=== PATIENT | female | born 2000 | race Caucasian/White ===

== ENCOUNTER 2019-03-15 23:03 | Emergency (ER) | payer BC ==
[2019-03-15 23:13] VITALS: BP 122/84; TEMP 98.2
[2019-03-15] MEDS ORDERED: IPRATROPIUM-ALBUTEROL 3 ML NEB INHALATION STA (23:14)
[2019-03-15 23:34] VITALS: PULSE 77
[2019-03-15 23:42] VITALS: RESP 22
--- NOTE | 2019-03-15 23:50 | ED ---
SOB HPI - General Chief Complaint: Shortness of Breath Stated Complaint: Asthma Time Seen by Provider: 03/15/19 23:12 Source: patient Mode of arrival: ambulatory Limitations: no limitations - History of Present Illness Initial Comments: Carmita is a 18-year-old female with a history of asthma for which she usually takes daily medications has a rescue inhaler as well as rescue nebulizer. Patient is out of her daily medications and reports she's been using her rescue inhaler and nebulizer more frequently. She reports that this evening she is driving back to her home when she felt that her asthma was worsening, she felt very short of breath and was wheezing. She had artery used her nebulizer so decided to come the ER for evaluation. She has been hospitalized for asthma as a child but not in the past few years. She's never been in ICU and has never required intubation. - Related Data Home Medications Medication Instructions Recorded Confirmed Albuterol Sulfate [Proair Hfa] 1 - 2 puff INHALATION RT-QID PRN 10/06/14 03/15/19 Fluticasone/Salmeterol [Advair 1 puff INHALATION RT-BID 10/06/14 03/15/19 250-50 Diskus] Albuterol Nebulized [Ventolin 2.5 mg INHALATION RT-QID PRN 03/15/19 03/15/19 Nebulized] Previous Rx's Medication Instructions Recorded Fluticasone/Salmeterol [Advair 1 each IH BID #1 blst.w.dev 03/16/19 250-50 Diskus] predniSONE 40 mg PO DAILY #10 tab 03/16/19 Allergies Allergy/AdvReac Type Severity Reaction Status Date / Time banana Allergy Dyspnea Verified 03/15/19 23:15 kiwi Allergy Dyspnea Verified 03/15/19 23:15 Review of Systems ROS Statement: Those systems with pertinent positive or pertinent negative responses have been documented in the HPI. ROS Other: All systems not noted in ROS Statement are negative. Past Medical History Past Medical History: Asthma History of Any Multi-Drug Resistant Organisms: None Reported Past Surgical History: Adenoidectomy, Tonsillectomy Past Psychological History: No Psychological Hx Reported Smoking Status: Never smoker Past Alcohol Use History: Occasional Past Drug Use History: None Reported General Exam - General Exam Comments Initial Comments: Physical Exam GENERAL: Patient is well-developed and well-nourished. Patient is nontoxic and well-hydrated and is in no distress. HENT: Normocephalic, Atraumatic. EYES: PERRL, EOMI PULMONARY: Wheezing in all lung boyle Tachypnea CARDIOVASCULAR: There is a regular rate and rhythm without any murmurs gallops or rubs. ABDOMEN: Soft and nontender with normal bowel sounds. SKIN: Skin is clear with no lesions or rashes and otherwise unremarkable. : Deferred NEUROLOGIC: Patient is alert and oriented x3. Moving all extremities spontaneously MUSCULOSKELETAL: Normal extremities with adequate strength and full range of motion. No lower extremity swelling or edema. No calf tenderness. PSYCHIATRIC: Normal psychiatric evaluation. Limitations: no limitations Course Vital Signs 03/15/19 03/15/19 03/15/19 23:10 23:23 23:30 Temperature 98.2 F Pulse Rate 74 87 77 Respiratory 20 18 18 Rate Blood Pressure 122/84 O2 Sat by Pulse 94 L Oximetry Medical Decision Making - Medical Decision Making Patient was seen and evaluated, history is obtained from the patient and mom. This 18-year-old female with mild to moderate severity of asthma. Patient's currently out of her daily medications and rinsing an asthma attack. Patient reports her cough is only been minimally productive. Treatment and chest x-ray were ordered. Chest x-ray with no signs of pneumonia. Patient was reevaluated after breathing treatment and had complete resolution of wheezing and is feeling much better. At this time patient stable for discharge home. She will be pre scribed Advair and prednisone. His pertaining to care were answered return parameters were discussed patient was discharged home in stable condition. Disposition Clinical Impression: Asthma with acute exacerbation Disposition: HOME SELF-CARE Condition: Stable Instructions (If sedation given, give patient instructions): Asthma (ED) Prescriptions: Fluticasone/Salmeterol [Advair 250-50 Diskus] 1 each IH BID #1 blst.w.dev predniSONE 40 mg PO DAILY #10 tab Is patient prescribed a controlled substance at d/c from ED?: No Referrals: Alvaro Lagunas III, MD [Primary Care Provider] - 1-2 days
[2019-03-15] MEDS ORDERED: predniSONE 20 MG TAB PO STA (23:53)
--- NOTE | 2019-03-15 23:53 | XR ---
EXAMINATION TYPE: XR chest 2V DATE OF EXAM: 03/15/2019 COMPARISON: 04/05/2017 HISTORY: Cough TECHNIQUE: Frontal and lateral views of the chest are obtained. FINDINGS: Heart and mediastinum are normal. Lungs are clear. Diaphragm is normal. Bony thorax appear s normal. IMPRESSION: Normal chest. No change.
== END 2019-03-16 00:55 | disposition home or self-care (01) ==
LOC: EC 23:03
DX: J45.901 Unspecified asthma with (acute) exacerbation (principal); Z79.51 Long term (current) use of inhaled steroids; Z91.018 Allergy to other foods; Z90.89 Acquired absence of other organs
CPT/HCPCS: 94640; 71046; 99285; J7512

== ENCOUNTER → 2019-04-02 | Outpatient (CLI) | payer BC ==
--- NOTE | 2019-04-02 08:16 | USB ---
Reason for exam: clinical finding. History: Taking hormonal contraceptives beginning at age 14. Indicated problem(s): pain in the right breast. Physical Findings: Nurse did not find any significant physical abnormalities on exam. US Breast RT Right complete breast ultrasound includes all four quadrants, the retroareolar region and axilla. Finding demonstrates no cystic or solid lesion seen. These results were verbally communicated with the patient and result sheet given to the patient on 04/02/19. ASSESSMENT: Negative, BI-RAD 1 RECOMMENDATION: Clinical management of the right breast. Manage patient on a clinical basis.
== END ==
LOC: RADUSWWP 07:08
PROVIDERS: ATTEND Family Medicine
DX: N64.4 Mastodynia (principal)

== ENCOUNTER 2019-09-22 16:44 | Emergency (ER) | payer BC ==
[2019-09-22 16:52] VITALS: RESP 18; TEMP 97.7
[2019-09-22] MEDS ORDERED: SODIUM CHLORIDE 0.9% 500 ML 500 ML IV STA (17:30)
[2019-09-22 17:51] LABS: Basophils % (A) 0 %; Eosinophils # (A) 0.4 k/uL (0-0.7); Eosinophils % (A) 4 %; HGB 14.2 gm/dL (11.4-16.0); Lymphocytes # (A) 1.6 k/uL (1.0-4.8); Lymphocytes % (A) 14 %; MCH 28.6 pg (25.0-35.0); MCV 86.8 fL (80.0-100.0); Mean Platelet Volume 7.1; Monocytes # (A) 0.3 k/uL (0-1.0); Monocytes % (A) 2 %; Neutrophils # (A) 8.8 k/uL (1.3-7.7); Neutrophils % (A) 79 %; Platelet Count 350 k/uL (150-450); RBC 4.95 m/uL (3.80-5.40); RDW 13.5 % (11.5-15.5); WBC 11.2 k/uL (4.0-11.0)
[2019-09-22 18:01] LABS: ALT 17 U/L (4-34); AST 25 U/L (14-36); African American GFR (CKD) >90 (>60 ml/min/1.73 sqM); Albumin 4.7 g/dL (3.5-5.0); Alkaline Phosphatase 77 U/L (38-126); Anion Gap 10 mmol/L; Blood Urea Nitrogen 15 mg/dL (7-17); Calcium 9.8 mg/dL (8.4-10.2); Carbon Dioxide 25 mmol/L (22-30); Chloride 105 mmol/L (98-107); Glucose 104 mg/dL (74-99); Non-African American GFR(CKD) >90 (>60 ml/min/1.73 sqM); Potassium 4.4 mmol/L (3.5-5.1); Sodium 140 mmol/L (137-145); Total Bilirubin 0.4 mg/dL (0.2-1.3); Total Protein 7.5 g/dL (6.3-8.2)
[2019-09-22 18:27] LABS: Appearance,Urine Clear (Clear); Bacteria,Urine Rare /hpf; Bilirubin,Urine Negative (Negative); Blood,Urine Moderate (Negative); Color,Urine Yellow; Glucose,Urine (UA) Negative (Negative); Ketones,Urine 1+ (Negative); Leukocyte Esterase,Urine Negative (Negative); Mucus,Urine Moderate /hpf; Nitrite,Urine Negative (Negative); Protein,Urine Trace (Negative); RBC,Urine 46 /hpf (0-5); Specific Gravity,Urine 1.022 (1.001-1.035); Squamous Epithelial Cell,Urine <1 /hpf (0-4); WBC,Urine 3 /hpf (0-5)
--- NOTE | 2019-09-22 18:39 | ED ---
General Adult HPI - General Chief complaint: Abdominal Pain Stated complaint: Abd pain Time Seen by Provider: 09/22/19 16:57 Source: patient, RN notes reviewed, old records reviewed Mode of arrival: ambulatory Limitations: no limitations - History of Present Illness Initial comments: 18 year old female patient presents to ED if she complaint of right upper quadrant pain. Patient reports that approximately 2 hours prior to presentation patient was having right upper quadrant pain. Patient reports she will nauseous at one episode of nausea and vomiting. Patient reports that this pain has since resolved. At time of evaluation patient is denying any pain. Patient does report that she is currently being treated for urinary tract infection. Systemic: Pt denies fatigue, fever/chills, rash. Pt denies weakness, night sweats, weight loss. Neuro: Pt denies headache, visual disturbances, syncope or pre-syncope. HEENT: Pt denies ocular discharge or irritation, otalgia, rhinorrhea, pharyngitis or notable lymphadenopathy. Cardiopulmonary: Pt denies chest pain, SOB, heart palpitations, dyspnea on exertion. Abdominal/GI: Pt denies abdominal pain, n/v/d. : Pt denies dysuria, burning w/ urination, frequency/urgency. Denies new onset urinary or bowel incontinence. MSK: Pt denies myalgia, loss of strength or function in extremities. Neuro: Pt denies new onset weakness, paresthesias. - Related Data Home Medications Medication Instructions Recorded Confirmed Albuterol Sulfate [Proair Hfa] 1 - 2 puff INHALATION RT-QID PRN 10/06/14 03/15/19 Fluticasone/Salmeterol [Advair 1 puff INHALATION RT-BID 10/06/14 03/15/19 250-50 Diskus] Albuterol Nebulized [Ventolin 2.5 mg INHALATION RT-QID PRN 03/15/19 03/15/19 Nebulized] Previous Rx's Medication Instructions Recorded Fluticasone/Salmeterol [Advair 1 each IH BID #1 blst.w.dev 03/16/19 250-50 Diskus] predniSONE [Deltasone] 40 mg PO DAILY #10 tab 03/16/19 Allergies Allergy/AdvReac Type Severity Reaction Status Date / Time banana Allergy Dyspnea Verified 09/22/19 16:50 kiwi Allergy Dyspnea Verified 09/22/19 16:50 Review of Systems ROS Statement: Those systems with pertinent positive or pertinent negative responses have been documented in the HPI. ROS Other: All systems not noted in ROS Statement are negative. Past Medical History Past Medical History: Asthma History of Any Multi-Drug Resistant Organisms: None Reported Past Surgical History: Adenoidectomy, Tonsillectomy Past Psychological History: No Psychological Hx Reported Smoking Status: Never smoker Past Alcohol Use History: Occasional Past Drug Use History: None Reported General Exam - General Exam Comments Initial Comments: Constitutional: NAD, AOX3, Pt has pleasant affect. HEENT: NC/AT, trachea midline, neck supple, no lymphadenopathy. Posterior pharyn x non erythematous, without exudates. External ears appear normal, without discharge. Mucous membranes moist. Eyes PERRLA, EOM intact. There is no scleral icterus. No pallor noted. Cardiopulmonary: RRR, no murmurs, rubs or gallops, no JVD noted. Lungs CTAB in anterior and posterior boyle. No peripheral edema. Abdominal exam: Abdomen soft and non-distended. Abdomen nontender to palpation and right upper quadrant region. Feliciano sign negative. Bowel sounds active in LLQ. No hepatosplenomegaly. No ecchymosis. Repeat abdominal exam displayed nontender abdomen. No CVA tenderness. Neuro: CN II-XII grossly intact. No nuchal rigidity. No raccon eyes, no hernandez sign, no hemotympanum. No cervical spinal tenderness. MSK: No posterior calf tenderness bilaterally, homans sign negative bilaterally. Posterior tibialis and radial pulse +2 bilaterally. Sensation intact in upper and lower extremities. Full active ROM in upper and lower extremities, 5/5 stregnth. Limitations: no limitations Course Vital Signs 09/22/19 09/22/19 16:50 19:36 Temperature 97.7 F Pulse Rate 68 63 Respiratory 18 18 Rate Blood Pressure 133/83 121/93 O2 Sat by Pulse 100 100 Oximetry Medical Decision Making - Medical Decision Making 18 year old female patient presents to ED if she complaint of right upper quadrant pain. Patient reports that approximately 2 hours prior to presentation patient was having right upper quadrant pain. Patient reports she will nauseous at one episode of nausea and vomiting. Patient reports that this pain has since resolved. At time of evaluation patient is denying any pain. Patient does report that she is currently being treated for urinary tract infection. She felt rather stable, afebrile. Physical exam displayed mild right upper quadrant tenderness, Feliciano sign negative, no other areas of abdominal tenderness. Laboratory investigations were obtained, mild leukocytosis of 11.2. UA did display 46 red blood cells patient is on her menses. HCG is negative. Gallbladder ultrasound displayed a probable 0.4 cm gallbladder polyp. Patient continues to be symptom free, repeat abdominal exam revealed nontender abdomen. Patient discharged with outpatient primary care and surgical follow-up and will return to ER if condition worsens. Case discussed with Dr. Jimenez. - Lab Data Result diagrams: 09/22/19 17:34 09/22/19 17:34 Lab Results 09/22/19 09/22/19 09/22/19 Range/Units 17:34 17:34 17:34 WBC 11.2 H (4.0-11.0) k/uL RBC 4.95 (3.80-5.40) m/uL Hgb 14.2 (11.4-16.0) gm/dL Hct 43.0 (34.0-46.0) % MCV 86.8 (80.0-100.0) fL MCH 28.6 (25.0-35.0) pg MCHC 33.0 (31.0-37.0) g/dL RDW 13.5 (11.5-15.5) % Plt Count 350 (150-450) k/uL Neutrophils % 79 % Lymphocytes % 14 % Monocytes % 2 % Eosinophils % 4 % Basophils % 0 % Neutrophils # 8.8 H (1.3-7.7) k/uL Lymphocytes # 1.6 (1.0-4.8) k/uL Monocytes # 0.3 (0-1.0) k/uL Eosinophils # 0.4 (0-0.7) k/uL Basophils # 0.0 (0-0.2) k/uL Sodium 140 (137-145) mmol/L Potassium 4.4 (3.5-5.1) mmol/L Chloride 105 (98-107) mmol/L Carbon Dioxide 25 (22-30) mmol/L Anion Gap 10 mmol/L BUN 15 (7-17) mg/dL Creatinine 0.88 (0.52-1.04) mg/dL Est GFR (CKD-EPI)AfAm >90 (>60 ml/min/1.73 sqM) Est GFR (CKD-EPI)NonAf >90 (>60 ml/min/1.73 sqM) Glucose 104 H (74-99) mg/dL Plasma Lactic Acid Ari 0.8 (0.7-2.0) mmol/L Calcium 9.8 (8.4-10.2) mg/dL Total Bilirubin 0.4 (0.2-1.3) mg/dL AST 25 (14-36) U/L ALT 17 (4-34) U/L Alkaline Phosphatase 77 (38-126) U/L Total Protein 7.5 (6.3-8.2) g/dL Albumin 4.7 (3.5-5.0) g/dL Lipase 56 (23-300) U/L Urine Color Urine Appearance (Clear) Urine pH (5.0-8.0) Ur Specific [place] (1.001-1.035) Urine Protein (Negative) Urine Glucose (UA) (Negative) Urine Ketones (Negative) Urine Blood (Negative) Urine Nitrite (Negative) Urine Bilirubin (Negative) Urine Urobilinogen (<2.0) mg/dL Ur Leukocyte Esterase (Negative) Urine RBC (0-5) /hpf Urine WBC (0-5) /hpf Ur Squamous Epith Cells (0-4) /hpf Urine Bacteria (None) /hpf Urine Mucus (None) /hpf Urine HCG, Qual (Not Detectd) 09/22/19 09/22/19 Range/Units 17:34 18:11 WBC (4.0-11.0) k/uL RBC (3.80-5.40) m/uL Hgb (11.4-16.0) gm/dL Hct (34.0-46.0) % MCV (80.0-100.0) fL MCH (25.0-35.0) pg MCHC (31.0-37.0) g/dL RDW (11.5-15.5) % Plt Count (150-450) k/uL Neutrophils % % Lymphocytes % % Monocytes % % Eosinophils % % Basophils % % Neutrophils # (1.3-7.7) k/uL Lymphocytes # (1.0-4.8) k/uL Monocytes # (0-1.0) k/uL Eosinophils # (0-0.7) k/uL Basophils # (0-0.2) k/uL Sodium (137-145) mmol/L Potassium (3.5-5.1) mmol/L Chloride (98-107) mmol/L Carbon Dioxide (22-30) mmol/L Anion Gap mmol/L BUN (7-17) mg/dL Creatinine (0.52-1.04) mg/dL Est GFR (CKD-EPI)AfAm (>60 ml/min/1.73 sqM) Est GFR (CKD-EPI)NonAf (>60 ml/min/1.73 sqM) Glucose (74-99) mg/dL Plasma Lactic Acid Ari (0.7-2.0) mmol/L Calcium (8.4-10.2) mg/dL Total Bilirubin (0.2-1.3) mg/dL AST (14-36) U/L ALT (4-34) U/L Alkaline Phosphatase (38-126) U/L Total Protein (6.3-8.2) g/dL Albumin (3.5-5.0) g/dL Lipase (23-300) U/L Urine Color Yellow Urine Appearance Clear (Clear) Urine pH 7.0 (5.0-8.0) Ur Specific [place] 1.022 (1.001-1.035) Urine Protein Trace H (Negative) Urine Glucose (UA) Negative (Negative) Urine Ketones 1+ H (Negative) Urine Blood Moderate H (Negative) Urine Nitrite Negative (Negative) Urine Bilirubin Negative (Negative) Urine Urobilinogen 2.0 (<2.0) mg/dL Ur Leukocyte Esterase Negative (Negative) Urine RBC 46 H (0-5) /hpf Urine WBC 3 (0-5) /hpf Ur Squamous Epith Cells <1 (0-4) /hpf Urine Bacteria Rare H (None) /hpf Urine Mucus Moderate H (None) /hpf Urine HCG, Qual Not Detected (Not Detectd) Disposition Clinical Impression: Gallbladder polyp, Abdominal pain Disposition: HOME SELF-CARE Condition: Stable Instructions (If sedation given, give patient instructions): Abdominal Pain (ED) Additional Instructions: Follow-up with primary care provider and general surgeon. Recommend outpatient repeat ultrasound for surveillance. Return to ER if condition worsens. Is patient prescribed a controlled substance at d/c from ED?: No Referrals: Alvaro Lagunas III, MD [Primary Care Provider] - 1-2 days Highfill,Edvin J, DO [Doctor of Osteopathic Medicine] - 1-2 days
--- NOTE | 2019-09-22 19:01 | US ---
EXAMINATION TYPE: US gallbladder DATE OF EXAM: 09/22/2019 COMPARISON: NONE CLINICAL HISTORY: RUQ pain. Right flank pain x 1 hour, N/V, patient not NPO EXAM MEASUREMENTS: Liver Length: 13.3 cm Gallbladder Wall: 0.2 cm CBD: 0.5 cm Right Kidney: 10.1 x 4.0 x 4.5 cm Pancreas: limited by overlying midline bowel gas Liver: wnl Gallbladder: 0.4cm non mobile non shadowing hyperechoic focus anterior wall, possible polyp Evidence for sonographic Feliciano's sign: no CBD: visualized portions wnl, limited by overlying bowel gas Right Kidney: wnl IMPRESSION: 1. No sonographic evidence of cholelithiasis or acute cholecystitis. 2. Probable 0.4 cm gallbladder polyp. Annual surveillance is recommended for polyps of this size.
[2019-09-22 19:37] VITALS: BP 121/93; PULSE 63
== END 2019-09-22 19:38 | disposition home or self-care (01) ==
LOC: EC 16:44
DX: K82.4 Cholesterolosis of gallbladder (principal); D72.829 Elevated white blood cell count, unspecified; J45.909 Unspecified asthma, uncomplicated; Z79.51 Long term (current) use of inhaled steroids; Z79.899 Other long term (current) drug therapy; Z91.018 Allergy to other foods
CPT/HCPCS: 36415; 76705; 80053; 81001; 81025; 83605; 83690; 85025; 96360; 99284

== ENCOUNTER → 2021-05-26 | Outpatient (CLI) | payer BC | END | disposition home or self-care (01) | LOC: LABWHC1 08:03 | PROVIDERS: ATTEND Nurse Practitioner Family | DX: N91.1 Secondary amenorrhea (principal) | CPT/HCPCS: 36415; 84702 ==

== ENCOUNTER 2022-01-12 15:30 | Emergency (ER) | payer BC ==
[2022-01-12 15:47] VITALS: TEMP 98
[2022-01-12] MEDS ORDERED: OXYMETAZOLINE 0.05% NASL SPRAY 1 SPRAY BOTTLE NASAL STA (16:12)
--- NOTE | 2022-01-12 16:46 | ED ---
ENT HPI - General Chief complaint: ENT Stated complaint: Nose bleed-37 weeks preg Time Seen by Provider: 01/12/22 16:03 Source: patient Mode of arrival: ambulatory Limitations: no limitations - History of Present Illness Initial comments: Patient is a 21-year-old female currently 37 weeks presenting with chief complaint of epistaxis. Patient states nosebleed started approximately an hour and a half prior to arrival. Patient was applying pressure at home which did not stop the nosebleed. She did remove one large clot from the nose. Patient states that she thought she saw what appeared to be a polyp when looking up the nose. Patient has had 2 other nosebleeds throughout this . Patient is otherwise asymptomatic, no chest pain, shortness of breath, fever, chills, nausea, vomiting, abdominal or pelvic pain, vaginal bleeding or discharge, diarrhea, hematochezia, melena, dysuria, hematuria, urgency, frequency. - Related Data Home Medications Medication Instructions Recorded Confirmed Albuterol Sulfate [Proair Hfa] 1 - 2 puff INHALATION RT-QID PRN 10/06/14 03/15/19 Fluticasone Propion/Salmeterol 1 puff INHALATION RT-BID 10/06/14 03/15/19 [Advair 250-50 Diskus] Albuterol Nebulized [Ventolin 2.5 mg INHALATION RT-QID PRN 03/15/19 03/15/19 Nebulized] Previous Rx's Medication Instructions Recorded Fluticasone Propion/Salmeterol 1 each IH BID #1 blst.w.dev 03/16/19 [Advair 250-50 Diskus] predniSONE [Deltasone] 40 mg PO DAILY #10 tab 03/16/19 Allergies Allergy/AdvReac Type Severity Reaction Status Date / Time banana Allergy Dyspnea Verified 01/12/22 15:47 kiwi Allergy Dyspnea Verified 01/12/22 15:47 Review of Systems ROS Statement: Those systems with pertinent positive or pertinent negative responses have been documented in the HPI. ROS Other: All systems not noted in ROS Statement are negative. Past Medical History Past Medical History: Asthma History of Any Multi-Drug Resistant Organisms: None Reported Past Surgical History: Adenoidectomy, Tonsillectomy Past Psychological History: No Psychological Hx Reported Smoking Status: Former smoker Past Alcohol Use History: Occasional Past Drug Use History: None Reported General Exam Limitations: no limitations General appearance: alert, in no apparent distress Head exam: Present: atraumatic, normocephalic, normal inspection Eye exam: Present: normal appearance, EOMI. Absent: scleral icterus, periorbital swelling ENT exam: Present: other (Epistaxis from right nostril) Neck exam: Present: normal inspection Neurological exam: Present: alert, oriented X3, CN II-XII intact Psychiatric exam: Present: normal affect, normal mood Skin exam: Present: warm, dry, intact, normal color. Absent: rash Course Vital Signs 01/12/22 01/12/22 15:45 17:41 Temperature 98 F Pulse Rate 91 77 Respiratory 20 18 Rate Blood Pressure 115/76 115/78 O2 Sat by Pulse 99 97 Oximetry Medical Decision Making - Medical Decision Making She is a 21-year-old female currently 37 weeks presenting with chief complaint of epistaxis. Bleeding is coming from the right nostril. On examination patient removed a large clot from the nostril when removing the tissue near her nose. Polyp is seen on examination. Patient is given Afrin and nasal clamp was applied. After an observation period bleeding stopped and was well-controlled. Follow-up with PCP and OBGYN. Report back to ER with any new or worsening symptoms. Discussed return parameters and answered all questions. Patient conveyed verbal understanding and agreed to the plan. I discussed this case in detail with my attending Dr. Cornell Disposition Clinical Impression: Epistaxis Disposition: HOME SELF-CARE Condition: Good Instructions (If sedation given, give patient instructions): Nosebleed (ED) Additional Instructions: Follow-up with PCP and [facility]. Report back to ER with any new or worsening symptoms. Utilize nose clamp and Afrin at home if needed for other nosebleeds, report back to ER if unable to stop the nosebleed at home. Is patient prescribed a controlled substance at d/c from ED?: No Referrals: Alvaro Lagunas III, MD [Primary Care Provider] - 1-2 days Time of Disposition: 17:20
[2022-01-12 17:42] VITALS: BP 115/78; PULSE 77; RESP 18
== END 2022-01-12 17:42 | disposition home or self-care (01) ==
LOC: EC 15:30
DX: O26.893 Other specified pregnancy related conditions, third trimester (principal); R04.0 Epistaxis; J45.909 Unspecified asthma, uncomplicated; Z87.891 Personal history of nicotine dependence; Z91.018 Allergy to other foods; Z79.51 Long term (current) use of inhaled steroids; Z3A.37 37 weeks gestation of pregnancy
CPT/HCPCS: 30901; 99283

== ENCOUNTER 2022-01-27 05:53 | Inpatient (IN) | payer BC ==
--- NOTE | 2022-01-26 11:13 | P.HPOB ---
History of Present Illness H&P Date: 01/26/22 Chief Complaint: Requested induction of labor. This patient is a pleasant 21 yr EDC 01/30/[birth year]22 estimated gestational age 39 4/7 weeks who presents to L&D for requested induction of labor. for the most part has been uncomplicated, however most recently she had a significant nose bleed and was found to have a large nasal polyp that Dr. Lagunas cauterized and has referred to ENT for future removal. Review of Systems Ears, nose, mouth and throat: Reports as per HPI Genitourinary: Reports Menstruation: Reports amenorrhea Past Medical History Past Medical History: Asthma Additional Past Medical History / Comment(s): Large nasal polyp History of Any Multi-Drug Resistant Organisms: None Reported Past Surgical History: Adenoidectomy, Tonsillectomy Past Anesthesia/Blood Transfusion Reactions: No Reported Reaction Past Psychological History: No Psychological Hx Reported Smoking Status: Former smoker Past Alcohol Use History: None Reported Past Drug Use History: None Reported Medications and Allergies Home Medications Medication Instructions Recorded Confirmed Type Albuterol Sulfate [Proair Hfa] 1 - 2 puff INHALATION RT-QID PRN 10/06/14 03/15/19 History Fluticasone Propion/Salmeterol 1 puff INHALATION RT-BID 10/06/14 03/15/19 History [Advair 250-50 Diskus] Albuterol Nebulized [Ventolin 2.5 mg INHALATION RT-QID PRN 03/15/19 03/15/19 History Nebulized] Fluticasone Propion/Salmeterol 1 each IH BID #1 blst.w.dev 03/16/19 Rx [Advair 250-50 Diskus] predniSONE [Deltasone] 40 mg PO DAILY #10 tab 03/16/19 Rx Allergies Allergy/AdvReac Type Severity Reaction Status Date / Time banana Allergy Dyspnea Verified 01/12/22 15:47 kiwi Allergy Dyspnea Verified 01/12/22 15:47 Exam - OBG Physical Exam Abdomen: bowel sounds normal, no diffuse tenderness, no bruit present, no guarding noted, no hepatomegaly, no splenomegaly, no mass Vulva: both: normal Vagina: normal moisture, no discharge Cervix: Cx 2-3 cm/soft Uterus: enlarged (Fundal height is 39 cm) Results labs: O positive, Rubella Immune, [id number] neg, Glucola 92, GBS negative. Ultrasound 12/30 Vtx 5#11oz (25-50%) Normal Assessment and Plan Assessment: This is a pleasant 21 yr female 39 4/7 weeks gestation requesting induction of labor. Plan is induction of labor and anticipate vaginal delivery. (1) 39 weeks gestation of Status: Acute Code(s): Z3A.39 - 39 WEEKS GESTATION OF SNOMED Code(s): 39161389 (2) Elective induction of labor planned Status: Acute Code(s): VQN6018 - SNOMED Code(s): 213205284
[2022-01-27] MEDS ORDERED: CARBOPROST TROMETHAMINE 250 MCG/ML 1 ML AMP IM PRN (06:03)
[2022-01-27] MEDS ORDERED: TERBUTALINE 1 MG/ML VIAL SQ PRN (06:03)
[2022-01-27] MEDS ORDERED: OXYTOCIN 10 UNIT/ML 1 ML VIAL IM PRN (06:03)
[2022-01-27] MEDS ORDERED: LIDOCAINE 0.5% (PF) 5 MG/ML (50 ML SDV) SQ PRN (06:03)
[2022-01-27] MEDS ORDERED: METHYLERGONOVINE 0.2 MG/ML 1 ML AMP IM PRN (06:03)
[2022-01-27] MEDS ORDERED: OXYTOCIN 30 UNITS/500 ML NS 30 UNIT in SALINE 1 500ML.BAG IV SCH ×2 (06:03→18:39)
[2022-01-27] MEDS: LACTATED RINGERS 1,000 ML IV SCH ×3 (06:13→16:43)
[2022-01-27 06:38] LABS: Basophils % (A) 0 %; Eosinophils # (A) 0.3 k/uL (0-0.7); Eosinophils % (A) 3 %; HCT 32.8 % (34.0-46.0); HGB 11.1 gm/dL (11.4-16.0); Lymphocytes # (A) 2.7 k/uL (1.0-4.8); Lymphocytes % (A) 25 %; MCHC 33.7 g/dL (31.0-37.0); Monocytes # (A) 0.4 k/uL (0-1.0); Monocytes % (A) 3 %; Neutrophils # (A) 7.2 k/uL (1.3-7.7); Neutrophils % (A) 67 %; Platelet Count 425 k/uL (150-450); RBC 3.82 m/uL (3.80-5.40); RDW 13.9 % (11.5-15.5); WBC 10.8 k/uL (3.8-10.6)
[2022-01-27] MEDS ORDERED: ROPIVACAINE 5 MG/ML 20 ML AMPULE ONE (11:43)
[2022-01-27] MEDS ORDERED: fentaNYL (PF) 50 MCG/ML 5 ML AMP ONE (11:43)
[2022-01-27] MEDS ORDERED: SODIUM CHLORIDE 0.9% 100 ML BAG ONE (11:43)
--- NOTE | 2022-01-27 18:28 | P.PROBDLV ---
Vaginal Delivery Note - . Vaginal Delivery Note: Normal vaginal delivery viable female Apgars 9 and 9 delivery time is 1810 hrs. Please see dictated H&P for intimate details of this patient's admission. In brief summary this is a pleasant 21-year-old 1 para 0 female estimated gestational age 39-4/7 weeks who presents to labor and delivery for requested induction of labor. On admission patient is 3 cm dilated has artificial rupture membranes for clear fluid. Labor is induced with Pitocin per protocol. Patient's labor progresses and she does get an epidural for pain control. Patient gets to complete and at this time its felt that her epidural is very dense therefore showed off and approximately 40 minutes later she does have the urge to push. Patient pushes the head to the perineum. Posterior perineum is supported we have controlled delivery of 's head over the intact perineum. Mouth and nares are bulb suctioned. is straight occiput anterior presentation. The anterior shoulder then spontaneously delivers followed by the posterior shoulder and rest this 's body. This is a vigorous viable female Apgars 9 and 9 delivery time is 1810 hrs. After delivery of the the is laid on the mother's abdomen. After the umbilical cord is then pulsating is doubly clamped and cut appears to be trivascular. The placenta is then spontaneously delivered intact. Inspection of the perineum shows first-degree laceration that superficial but repaired with 3-0 Vicryl usual fashion. There is also a right labial laceration does not require repair. All counts are correct 3. No complications. Infant and mother are stable delivery room.
[2022-01-27] MEDS ORDERED: SIMETHICONE 80 MG CHEWABLE PO PRN (18:39)
[2022-01-27] MEDS ORDERED: ACETAMINOPHEN TAB 325 MG TAB PO PRN (18:39)
[2022-01-27] MEDS ORDERED: BENZOCAINE/MENTHOL SPRAY 1 GM/SPRAY AEROSOL TOPICAL PRN (18:39)
[2022-01-27] MEDS ORDERED: diphenhydrAMINE 25 MG CAP PO PRN (18:39)
[2022-01-27] MEDS ORDERED: bisacodyL 10 MG SUPP RECTAL PRN (18:39)
[2022-01-27] MEDS ORDERED: LANOLIN CREAM 5 GM TUBE TOPICAL PRN (18:39)
[2022-01-27] MEDS ORDERED: HYDROCORTISONE 2.5% RECTAL CREAM 30 GM TUBE RECTAL PRN (18:39)
[2022-01-27] MEDS ORDERED: ZOLPIDEM 5 MG TAB PO PRN (18:39)
[2022-01-27] MEDS ORDERED: diphenhydrAMINE 50 MG/ML 1 ML VIAL IVP PRN (18:39)
[2022-01-27] MEDS: IBUPROFEN 600 MG TAB PO PRN (19:05)
[2022-01-27 19:31] VITALS: RESP 16
[2022-01-28] MEDS: SENNOSIDES-DOCUSATE SODIUM 1 EACH TAB PO SCH ×3 (00:29→08:35)
[2022-01-28] MEDS: IBUPROFEN 600 MG TAB PO PRN ×2 (05:46→12:15)
[2022-01-28 05:53] LABS: Basophils % (A) 0 %; Eosinophils # (A) 0.2 k/uL (0-0.7); Eosinophils % (A) 1 %; HCT 29.3 % (34.0-46.0); Lymphocytes # (A) 2.2 k/uL (1.0-4.8); Lymphocytes % (A) 18 %; MCH 29.4 pg (25.0-35.0); MCV 86.5 fL (80.0-100.0); Mean Platelet Volume 8.4; Monocytes # (A) 0.5 k/uL (0-1.0); Monocytes % (A) 4 %; Neutrophils # (A) 8.9 k/uL (1.3-7.7); Neutrophils % (A) 74 %; Platelet Count 337 k/uL (150-450); RBC 3.39 m/uL (3.80-5.40)
--- NOTE | 2022-01-28 06:36 | P.PNOBGVD ---
Subjective - Subjective Patient reports: Reports appetite normal, Reports voiding normally, Reports pain well controlled, Reports ambulating normally : doing well Objective - Latest Vital Signs Latest vital signs: Vital Signs Temp Pulse Resp BP Pulse Ox 01/28/22 04:00 97.7 F 83 16 98/62 97 01/28/22 00:00 97.6 F 80 16 100/61 97 01/27/22 20:42 98.2 F 74 16 116/69 01/27/22 20:12 78 16 107/70 01/27/22 19:42 73 16 114/75 01/27/22 19:27 74 16 116/69 01/27/22 19:12 98 18 118/72 98 01/27/22 18:57 75 16 122/70 01/27/22 18:42 72 16 118/66 Intake and Output 01/27/22 01/27/22 01/28/22 14:59 22:59 06:59 Output Total 714 400 Balance -714 -400 Output: Urine 600 400 Output, Quantitative 114 Blood Loss Other: # Voids 1 - Exam Lungs: bilateral: normal Chest: Normal S1, Normal S2 Extremities: Present: normal Abdomen: Present: normal appearance, soft Uterus: Present: normal, firm - Labs Labs: Abnormal Lab Results - Last 24 Hours (Table) 01/27/22 01/28/22 Range/Units 06:00 05:39 WBC 10.8 H 12.0 H (3.8-10.6) k/uL RBC 3.39 L (3.80-5.40) m/uL Hgb 11.1 L 10.0 L (11.4-16.0) gm/dL Hct 32.8 L 29.3 L (34.0-46.0) % Neutrophils # 8.9 H (1.3-7.7) k/uL Assessment and Plan Assessment: day #1. Patient is resting without complaints and wishes to go. Vital signs are stable she's afebrile. Uterus is firm nontender and she is having normal lochia. Impression this is a normal course. Plan is to continue routine care discharge home later today. (1) 39 weeks gestation of Current Visit: No Status: Acute Code(s): Z3A.39 - 39 WEEKS GESTATION OF SNOMED Code(s): 82220034 (2) Elective induction of labor planned Current Visit: No Status: Acute Code(s): [id number] - SNOMED Code(s): 752564408
--- NOTE | 2022-01-28 06:39 | P.DS ---
Providers Date of admission: 01/27/22 05:53 Expected date of discharge: 01/28/22 Attending physician: Cedric Cruz Primary care physician: Alvaro Lagunas - Discharge Diagnosis(es) (1) 39 weeks gestation of Current Visit: No Status: Acute (2) Elective induction of labor planned Current Visit: No Status: Acute Hospital Course: Please see dictated H&P for intimate details of this patient's admission. In brief summary this is a pleasant 21-year-old 1 para 0 female estimated gestational age 39-4/7 weeks who presents to labor and delivery for elective induction of labor. Patient is admitted she is 3 cm dilated has artificial rupture membranes for clear fluid. Labor is induced with Pitocin per protocol and she subsequently goes on to have a vaginal delivery viable female . Please see dictated delivery note. day 1 patient's felt be stable for discharge home follow up with me in 6 weeks. Procedures: Induction of labor and normal vaginal delivery Patient Condition at Discharge: Good Plan - Discharge Summary New Discharge Prescriptions: New Ibuprofen [Motrin] 600 mg PO Q6HR PRN #30 tab PRN Reason: Mild Pain (Scale 1 To 3) No Action Albuterol Sulfate [Proair Hfa] 1 - 2 puff INHALATION RT-QID PRN PRN Reason: Dyspnea Albuterol Nebulized [Ventolin Nebulized] 2.5 mg INHALATION RT-QID PRN PRN Reason: Shortness Of Breath Vit No.179/Iron/Folic [ Tablet] 1 each PO Discharge Medication List Albuterol Sulfate [Proair Hfa] 1 - 2 puff INHALATION RT-QID PRN 10/06/14 [History] Albuterol Nebulized [Ventolin Nebulized] 2.5 mg INHALATION RT-QID PRN 03/15/19 [History] Vit No.179/Iron/Folic [ Tablet] 1 each PO 01/27/22 [History] Ibuprofen [Motrin] 600 mg PO Q6HR PRN #30 tab 01/28/22 [Rx] Follow up Appointment(s)/Referral(s): Cedric Cruz MD [STAFF PHYSICIAN] - 03/09/22 11:15 am Patient Instructions/Handouts: Vaginal Delivery (DC) Activity/Diet/Wound Care/Special Instructions: No intercourse or anything per vagina for 6 weeks. Please call if any fever, c hills, excessive vaginal bleeding, and/or abdominal pain. Discharge Disposition: HOME SELF-CARE
[2022-01-28 17:15] VITALS: BP 108/71; PULSE 73; TEMP 98.6
== END 2022-01-28 18:45 | disposition home or self-care (01) | DRG 807 ==
LOC: 4FBP 05:53
PROVIDERS: ADMIT Obstetrics & Gynecology; ATTEND Obstetrics & Gynecology
PROC: 10E0XZZ Delivery of Products of Conception, External Approach (ICD-10-PCS; principal; 2022-01-27)
PROC: 0HQ9XZZ Repair Perineum Skin, External Approach (ICD-10-PCS; 2022-01-27)
PROC: 10907ZC Drainage of Amniotic Fluid, Therapeutic from Products of Conception, Via Natural or Artificial Opening (ICD-10-PCS; 2022-01-27)
PROC: 3E033VJ Introduction of Other Hormone into Peripheral Vein, Percutaneous Approach (ICD-10-PCS; 2022-01-27)
DX: O99.52 Diseases of the respiratory system complicating childbirth (principal); Z37.0 Single live birth; J45.909 Unspecified asthma, uncomplicated; O70.0 First degree perineal laceration during delivery; Z3A.39 39 weeks gestation of pregnancy; Z87.891 Personal history of nicotine dependence; Z91.018 Allergy to other foods
CPT/HCPCS: 85025; 86850; 86900; 86901

== ENCOUNTER → 2022-02-03 | Outpatient (CLI) | payer BC ==
--- NOTE | 2022-02-03 12:39 | CT ---
EXAMINATION TYPE: CT sinus wo con DATE OF EXAM: 02/03/2022 COMPARISON: 04/14/2017 HISTORY: Right nasal mass CT DLP: Fluoroscopy 4.00 mGycm. Automated Exposure Control for Dose Reduction was Utilized. TECHNIQUE: CT scan of the sinuses is performed without contrast, axial images are obtained, coronal r eformatted images are also reviewed. FINDINGS: There are mucous retention cyst or polyps involving the inferior maxillary antra bilaterall y. Remaining paranasal sinuses demonstrate significant thickening. Very minimal mucosal changes are s een involving the sphenoid and ethmoid air cells. No air-fluid levels. The ostiomeatal complex is pa tent bilaterally on the coronal images. There is minimal nasal septal deviation. There appears to be asymmetric fullness involving the occipi neil portion of the right nasal passage. This may correspond to reported history of right nasal mass. Oropharynx and nasopharynx symmetric. Dental artifacts seen no diagnostic alignment. Visualized portion of mastoid air cells show no abnormal opacification. The globes are intact bilate rally. IMPRESSION: 1. There is a 1.4 cm area of asymmetric soft tissue thickening within the proximal right nasal passag e. May be related to the patient's reported history of right nasal mass or polyp. Correlate clinicall y. 2. Changes of mild chronic sinusitis versus retention cysts or polyps noted within the inferior maxil panchito antra.
== END | disposition home or self-care (01) ==
LOC: RADCTMAIN 12:04
PROVIDERS: ATTEND Otolaryngology
DX: R04.0 Epistaxis (principal)
CPT/HCPCS: 70486

== ENCOUNTER → 2022-03-23 | Outpatient (CLI) | payer BC | END | disposition home or self-care (01) | LOC: LABWHC1 12:35 | PROVIDERS: ATTEND Obstetrics & Gynecology | DX: N94.89 Other specified conditions associated with female genital organs and menstrual cycle (principal) | CPT/HCPCS: 36415; 84702 ==

== ENCOUNTER 2022-04-14 06:23 | Day surgery (SDC) | payer BC ==
[2022-04-12 09:39] VITALS: BMI 36.6
[~2022-04-14 06:23] MED LIST: DEXAMETHASONE SOD PHOSPHATE 4 MG/ML 1 ML VIAL IV ONE; DEXAMETHASONE SOD PHOSPHATE 4 MG/ML 1 ML VIAL IV PRN; FAMOTIDINE 20 MG/2 ML VIAL IV PRN; LACTATED RINGERS 1,000 ML IV SCH; LIDOCAINE 1% (10MG/ML) FOR IV START INTRADERMA PRN; MIDAZOLAM 2 MG/2 ML VIAL IV PRN; ONDANSETRON 4 MG/2 ML VIAL IVP ONE; ONDANSETRON 4 MG/2 ML VIAL IVP PRN
[2022-04-14] MEDS ORDERED: OXYMETAZOLINE 0.05% NASL SPRAY 1 SPRAY BOTTLE EA NOSTRIL ONE ×5 (06:50→07:10)
[2022-04-14] MEDS ORDERED: OXYMETAZOLINE 0.05% NASL SPRAY 1 SPRAY BOTTLE ONE (06:50)
[2022-04-14] MEDS ORDERED: LACTATED RINGERS 1,000 ML IV ONE (06:50)
[2022-04-14] MEDS ORDERED: HYDROmorphone 0.5 MG/0.5 ML SYRINGE IVP PRN (07:00)
[2022-04-14] MEDS ORDERED: DEXAMETHASONE SOD PHOSPHATE 10 MG/ML 1 ML VIAL IVP ONE (07:09)
[2022-04-14] MEDS ORDERED: ONDANSETRON 4 MG/2 ML VIAL IVP ONE (07:09)
[2022-04-14] MEDS ORDERED: FAMOTIDINE 20 MG/2 ML VIAL IVP ONE ×3 (07:11)
[2022-04-14] MEDS ORDERED: ROCURONIUM 10 MG/ML (5 ML VIAL) IV ONE (07:21)
[2022-04-14] MEDS ORDERED: MIDAZOLAM 2 MG/2 ML VIAL ONE (07:21)
[2022-04-14] MEDS ORDERED: PROPOFOL 10 MG/ML 20 ML VIAL IV ONE (07:21)
[2022-04-14] MEDS ORDERED: fentaNYL (PF) 50 MCG/ML 2 ML AMP ONE (07:21)
[2022-04-14] MEDS ORDERED: NEOSTIGMINE 1 MG/ML 10 ML VIAL ONE (07:21)
[2022-04-14] MEDS ORDERED: GLYCOPYRROLATE 0.2 MG/ML 2 ML VIAL ONE (07:21)
[2022-04-14] MEDS ORDERED: LIDOCAINE 4% LTA KIT (4 ML) TOPICAL ONE (07:21)
[2022-04-14] MEDS ORDERED: LIDOCAINE 2% INJ 20 MG/ML (2 ML VIAL) ONE (07:21)
[2022-04-14] MEDS ORDERED: SUCCINYLCHOLINE CHLORIDE 200 MG/10 ML VIAL IV ONE (07:21)
[2022-04-14] MEDS ORDERED: LIDOCAINE 1%-EPI 1:100,000 20 ML VIAL SUBMUCOSAL ONE ×2 (07:52)
--- NOTE | 2022-04-14 08:12 | P.OP ---
Date of Procedure: 04/14/22 Preoperative Diagnosis: Right intranasal mass Postoperative Diagnosis: Same Procedure(s) Performed: Right nasal endoscopy with excision right nasal mass Anesthesia: YEIMI Surgeon: Néstor Grimes Estimated Blood Loss (ml): 5 Pathology: other (Right intranasal/septal mass) Condition: stable Disposition: PACU Indications for Procedure: The 21-year-old white female with a right nasal septal lesion. She has had occasional epistaxis with this. This was noted previous however she became and therefore excision had to be postponed until after her delivery. Operative Findings: Approximately 1.5 cm erythematous fleshy soft solid mass arising from the anterior nasal septum on the right but also attached to the lateral nasal wall anterior to the inferior turbinate Description of Procedure: The patient was brought in the operative suite and placed in a supine position. Patient underwent induction of general anesthesia with oral endotracheal intubation without difficulty. The patient was prepped and draped in the usual aseptic fashion. 1% lidocaine with [id number] epinephrine was infused submucosally at the base of the lesion and this was left to work for 7 minutes vasoconstrictive effect. The lesion was then excised endoscopically 0 endoscope sharply from the underlying tissue both on the septum leaving the perichondrium intact as well as off of the lateral nasal wall. The lesion was then removed. The of the lesion at both the septal site and lateral nasal wall anterior to the inferior turbinate was then debrided to remove the remainder of the gross disease with microdebrider. Hemostasis was gained with suction cautery. Excellent hemostasis was noted. A small pledget xerogel was then placed moistened with saline. Was excellent hemostasis noted the patient was then allowed to emerge from anesthesia having tolerated procedure well was extubated in the operating suite and transferred to the postop recovery area in satisfactory in satisfactory condition.
[2022-04-14 08:21] VITALS: TEMP 97
[2022-04-14 09:42] VITALS: BP 128/85; PULSE 63; RESP 20
== END 2022-04-14 09:59 | disposition home or self-care (01) ==
LOC: OR 06:23
PROVIDERS: ATTEND Otolaryngology
DX: J33.9 Nasal polyp, unspecified (principal); J34.89 Other specified disorders of nose and nasal sinuses; J45.909 Unspecified asthma, uncomplicated; Z79.51 Long term (current) use of inhaled steroids; Z79.899 Other long term (current) drug therapy
CPT/HCPCS: 31237; 81025; 88305; J2250; J0330; J1100; J2710; J0690; J2405; J3010; J2704; J2001